=== PATIENT | female | born 1990 ===

== ENCOUNTER → 2023-03-18 | Outpatient (CLI) | payer OTHER ==
[2023-03-19 11:41] LABS: Candida species (DNA Probe) Negative (NEGATIVE); G. vaginalis (DNA Probe) Negative (NEGATIVE); T. vaginalis (DNA Probe) Negative (NEGATIVE)
[2023-03-22 19:10] LABS: CHLAMYDIA BY NAA Negative (Negative); GONOCOCCUS BY NAA Negative (Negative); HPV 16 Negative (Negative); HPV 18 Negative (Negative); HPV OTHER HR TYPES Negative (Negative); TRICH VAG BY NAA Negative (Negative)
== END ==
LOC: LAB SHORT 14:37 → LAB 14:37
DX: Z12.4 Encounter for screening for malignant neoplasm of cervix (principal)
CPT/HCPCS: 87480; 87491; 87510; 87591; 87624; 87660; 87661; G0145

== ENCOUNTER → 2025-03-31 | Outpatient (CLI) | payer OTHER ==
[2025-04-05 18:05] LABS: HSV SUBTYPE SOURCE LABIAL SORE
== END ==
LOC: LAB SHORT 14:26 → LAB 14:26
DX: N89.8 Other specified noninflammatory disorders of vagina (principal)
CPT/HCPCS: 87529

== ENCOUNTER → 2025-05-10 | Outpatient (CLI) | payer OTHER ==
[2025-05-13 07:39] LABS: HSV 1 GLYCOPROTEIN G AB, IGG 43.7 IV (<=0.89); HSV 2 GLYCOPROTEIN G AB, IGG 0.04 IV (<=0.89)
== END | disposition home or self-care (01) ==
LOC: LAB SHORT 17:18 → LAB 17:18
DX: N89.8 Other specified noninflammatory disorders of vagina (principal)
CPT/HCPCS: 86695; 86696